=== PATIENT | female | born 1970 | race African-American/Black ===

== ENCOUNTER → 2020-04-28 | Outpatient (CLI) | payer OTHER ==
--- NOTE | 2020-05-02 10:33 | RAD ---
DATE: 04/28/2020 10:15 AM EXAM: MAMMO TANG SCREENING BILATERAL HISTORY: Screening COMPARISON: None. This will be a baseline Bilateral CC and MLO views of the breasts were performed. Bilateral breast tomosynthesis was performed in CC and MLO projections. This study was interpreted with the benefit of Computerized Aided Detection (CAD). FINDINGS: Breast Density: FATTY The Breast Parenchyma is primarily fatty replaced. Breast parenchyma level density A. No suspicious masses, microcalcifications or architectural distortion is present to suggest malignancy in either breast. The visualized axillae are unremarkable. IMPRESSION: No mammographic evidence of malignancy. BI-RADS CATEGORY: 1 NEGATIVE RECOMMENDED FOLLOW-UP: 12M 12 MONTH FOLLOW-UP Annual screening mammography is recommended, unless clinically indicated sooner based on symptoms or change in physical exam. PQRS compliance statement: Patient information was entered into a reminder system with a target due date for the next mammogram. Mammography is a sensitive method for finding small breast cancers, but it does not detect them all and is not a substitute for careful clinical examination. A negative mammogram does not negate a clinically suspicious finding and should not result in delay in biopsying a clinically suspicious abnormality. "Our facility is accredited by the [employer] Mammography Program."
== END ==
LOC: MAMMO 09:56
PROVIDERS: ATTEND Internal Medicine
DX: Z12.31 Encounter for screening mammogram for malignant neoplasm of breast (principal)
CPT/HCPCS: 77063; 77067

== ENCOUNTER → 2021-02-19 | Outpatient (CLI) | payer OTHER ==
--- NOTE | 2021-02-19 17:12 | RAD ---
XR RT WRIST 3VIEWS DATE: 02/19/2021 1:19 PM INDICATION: RIGHT WRIST PAIN COMPARISON: None. FINDINGS: Bones: There is no evidence of acute fracture or dislocation. Joints: The joint spaces are normal. Miscellaneous: None. IMPRESSION: No acute osseous abnormality. Electronically signed by: Mandeep Sandhu MD (02/19/2021 5:10 PM) [id number]
== END ==
LOC: RAD 13:15
PROVIDERS: ATTEND Physician Assistant
DX: M25.531 Pain in right wrist (principal)
CPT/HCPCS: 73110